=== PATIENT | female | born 1975 | race Caucasian/White ===

== ENCOUNTER → 2020-03-30 | Outpatient (CLI) | payer OTHER ==
--- NOTE | 2020-03-30 16:26 | KCIC ---
Examination: MRI of the right knee without contrast HISTORY: History of right knee pain, twisting injury COMPARISON: None available TECHNIQUE: Multiplanar, multisequence MR imaging of the right knee was performed without contrast FINDINGS: The anterior cruciate ligament, posterior cruciate ligament appears intact. There is mild increased T 2 signal identified in the undersurface portion of the body of the medial meniscus likely a tear. The lateral meniscus appears intact. The medial collateral ligament appears intact. Lateral collateral l igamentous complex including the fibular collateral ligament, biceps femoris tendon, popliteus tendon appears intact. The extensor mechanism is intact. Small knee joint effusion is identified. The medial, lateral retinaculum appears intact. Small knee joint effusion. There is deep fissuring of cartilage identified in the patellofemoral comp artment. Mild superficial fraying of cartilage identified in the medial compartment. The extensor mec hanism appears intact. Small popliteal cyst is identified. There is mild increased T2 signal identified in the gastrocnemius muscles of the calf posteriorly likely mild muscle strain. Mild joint space loss identified in the medial, lateral, patellofemoral compartments. IMPRESSION: 1. Tear of the medial meniscus. 2. Small knee joint effusion with small popliteal cyst. 3. Grade II chondromalacia patella. Grade I chondromalacia medial compartment. 4. Mild increased T2 signal identified in the gastrocnemius muscles of the calf posteriorly likely m ild muscle strain. Electronically signed by: Panchito Lowery MD (03/30/2020 4:24 PM) [id number]
== END ==
LOC: KCIC MRI 15:12
PROVIDERS: ATTEND Physician Assistant
DX: S83.241A Other tear of medial meniscus, current injury, right knee, initial encounter (principal); M25.461 Effusion, right knee; M94.261 Chondromalacia, right knee; X58.XXXA Exposure to other specified factors, initial encounter; Y93.89 Activity, other specified; Y92.89 Other specified places as the place of occurrence of the external cause; Y99.8 Other external cause status
CPT/HCPCS: 73721